=== PATIENT | male | born 1955 | race Caucasian/White ===

== ENCOUNTER 2017-03-21 18:41 | Emergency (ER) | payer MEDICAID ==
--- NOTE | 2017-03-21 22:26 | ER ---
HISTORY OF PRESENT ILLNESS: A 62-year-old male here with complaints of dizziness that started within the last hour and a half or so. He states that he felt like he was going to pass out a couple of times but he did not and the dizziness has since resolved. The patient denies any falls or injuries. Recently, he states that he decided to quit chewing tobacco so he put on NicoDerm patches today 21 mg patches, he put on 3 patches. The third patch was about 2 hours before he became dizzy. The patient denies any chest pain, shortness of breath or wheezing. He denies any nausea or vomiting. The patient tells me that he was sick a couple of days ago with flu-like symptoms but this has resolved. CURRENT MEDICATIONS: Include Lipitor, lisinopril, clobetasol cream, hydrocodone , and aspirin. ALLERGIES: OXYCODONE. OBJECTIVE: GENERAL APPEARANCE: The patient is awake and alert. He is in no obvious distress. VITAL SIGNS: Reviewed. He is afebrile. Blood pressure initially 116/66, pulse 94. HEENT: Eyes; pupils are equal, round, and reactive to light. EOMs intact without strabismus, nystagmus, or ptosis. Ears, TMs are normal. Oral mucous membranes are slightly dry. Tonsils not enlarged or injected. Pharynx not inflamed. NECK: Supple. LUNGS: Clear. CARDIAC: Heart sounds distinct, regular rate, S1-S2 present. No murmurs. ABDOMEN: Soft and nontender. SKIN: Warm and dry. The patient is able stand and walk around the emergency room without any episodes of dizziness at this time. Initial treatment; orthostatic blood pressure and pulses were obtained. When the patient stood up, his blood pressure dropped slightly to 93/63, pulse increased to 107. The patient remained asymptomatic. LABS: CBC shows a slightly elevated white count of 12.1, hemoglobin 12.1. CMP reveals a blood glucose of 131, BUN 36, creatinine 1.2. DIAGNOSES: 1. Dizziness due to over-use of NicoDerm patches. 2. Dehydration, mild. TREATMENT PLAN: The patient was able to drink water well while he was in the emergency room, and we monitored him for approximately 1 hour. He is feeling fine. I had the patient walk around the ER once again, and he is walking briskly without any discomfort or dizziness at this time. He will be discharged home. 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 I advised the patient to continue to push fluids for a couple of days. He is to skip his lisinopril tomorrow morning. He is to consult his primary care provider who is Dr. Patiño in [place], before resuming Nicoderm patches in order to do it so safely. The patient has all of the patches removed here in the emergency room, and I advised him not to restart them once again until he has some direction from his primary care provider. The patient agrees with the treatment plan and has no further questions. CRS/MODL /[id number] HANDY
== END 2017-03-21 20:40 | disposition home or self-care (01) ==
LOC: LB.ED 18:41
DX: E86.0 Dehydration (principal)
CPT/HCPCS: 36415; 80053; 85025; 99284

== ENCOUNTER 2020-07-11 12:32 | Inpatient (IN) | payer MEDICARE ==
[2020-07-11] MEDS ORDERED: Acetaminophen 500 MG Tab PO PRN (15:34)
[2020-07-11] MEDS ORDERED: Acetaminophen/HYDROcodone 325-10 MG Tab PO PRN (15:51)
[2020-07-11] MEDS ORDERED: predniSONE 10 MG Tab PO PRN (15:59)
[2020-07-11] MEDS ORDERED: Sennosides 8.6 MG Tab PO PRN (16:00)
[2020-07-11] MEDS ORDERED: Triamcinolone Acetonide 0.1% Crm 30 GM Tube TOP PRN (16:01)
[2020-07-11] MEDS ORDERED: Morphine 15 MG Tab PO PRN (16:04)
[2020-07-11] MEDS ORDERED: Tuberculin, PPD 5 Units/0.1 ML 1 ML MDV IDERM ONE (16:59)
--- NOTE | 2020-07-11 19:03 | PCM.HP.2 ---
H&P History of Present Illness - General Date of Service: 07/11/20 Admit Problem/Dx: Admission Diagnosis/Problem Admission Diagnosis/Problem Total replacement of hip Source of Information: Patient History Limitations: Reports: No Limitations - History of Present Illness Initial Comments - Free Text/Narative: This is a 65yo M here for post left total hip arthroplasty. He is currently requiring rehabilitation and doing well. No further concerns. Pain is in fair control but good control when he receives his pain meds as needed. Quality: Reports: Ache Severity: Moderate Improves with: Reports: Rest Worsens with: Reports: Movement Context: Reports: Activity/Exercise Associated Symptoms: Reports: No Other Symptoms Left Hip Pain Score (Numeric/FACES): 2 - Related Data Allergies/Adverse Reactions: Allergies Allergy/AdvReac Type Severity Reaction Status Date / Time honey Allergy Other Verified 07/11/20 14:07 [From [facility] (honey)] metformin Allergy Anaphylactic Verified 07/11/20 16:07 Shock NSAIDS (Non-Steroidal Allergy Other Verified 07/11/20 14:06 Anti-Inflamma oxycodone [Oxycodone] AdvReac Intermediate Insomnia Verified 03/21/17 18:57 Home Medications: Home Meds Aspirin [Cristóbal Chewable Aspirin] 162 mg PO DAILY 03/01/14 [History] Lisinopril 20 mg PO DAILY 03/21/17 [History] atorvaSTATin [Lipitor] 10 mg PO DAILY 03/21/17 [History] Ascorbic Acid 500 mg PO DAILY 07/11/20 [History] Cefadroxil [Duricef] 500 mg PO BID 07/11/20 [History] Cholecalciferol (Vitamin D3) [Vitamin D3] 25 mcg PO DAILY 07/11/20 [History] Doxycycline Hyclate 100 mg PO DAILY 07/11/20 [History] Enoxaparin [Lovenox] 40 mg SUBCUT DAILY 07/11/20 [History] Ferrous Sulfate 325 mg PO DAILY 07/11/20 [History] Fluocinonide [Lidex 0.05% Crm] 30 gm TOP DAILY PRN 07/11/20 [History] Morphine 15 mg PO BID PRN 07/11/20 [History] Pioglitazone [Actos] 15 mg PO DAILY 07/11/20 [History] Triamcinolone Acetonide [Kenalog 0.1% Lotion] 1 applic TOP ASDIRECTED PRN 07/11/20 [History] Vitamin B Complex [B Complex] 1 cap PO DAILY 07/11/20 [History] predniSONE [Prednisone] 10 mg PO ASDIRECTED PRN 07/11/20 [History] Acetaminophen [Tylenol Extra Strength] 1,000 mg PO Q6H PRN tablet 07/13/20 [Rx] Aspirin [Halfprin] 162 mg PO DAILY tab.ec 07/13/20 [Rx] Cefadroxil [Duricef] 500 mg PO BID #42 cap 07/13/20 [Rx] Cholecalciferol (Vitamin D3) [Vitamin D3] 25 mcg PO DAILY tablet 07/13/20 [Rx] Doxycycline [Vibramycin] 100 mg PO DAILY #21 cap 07/13/20 [Rx] Enoxaparin [Lovenox] 40 mg SUBCUT DAILY #21 syringe 07/13/20 [Rx] Ferrous Sulfate 325 mg PO DAILY tablet 07/13/20 [Rx] Morphine 15 mg PO BID PRN tablet 07/13/20 [Rx] Pioglitazone [Actos] 15 mg PO DAILY tablet 07/13/20 [Rx] Triamcinolone Acetonide [Kenalog 0.1% Crm] 0 - 1 gm TOP DAILY PRN tube 07/13/20 [Rx] atorvaSTATin [Lipitor] 10 mg PO DAILY tablet 07/13/20 [Rx] lisinopriL [Prinivil] 20 mg PO DAILY tablet 07/13/20 [Rx] predniSONE 10 mg PO DAILY PRN tablet 07/13/20 [Rx] Past Medical History HEENT History: Reports: Impaired Vision Other HEENT History: wears corrective lenses Cardiovascular History: Reports: Hypertension Gastrointestinal History: Reports: Other (See Below) Other Gastrointestinal History: Perforated Duodenum 2008, Hernia repair 2009 Musculoskeletal History: Reports: Fracture Other Musculoskeletal History: 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 Exam - Exam Exam: See Below - Vital Signs Weight: 72.802 kg - Exam General: Alert, Oriented, Cooperative HEENT: PERRLA, Conjunctiva Clear, EACs Clear, EOMI Neck: Supple Lungs: Clear to Auscultation, Normal Respiratory Effort Cardiovascular: Regular Rate, Regular Rhythm GI/Abdominal Exam: Normal Bowel Sounds, Soft, Non-Tender Back Exam: Normal Inspection Extremities: Normal Inspection - Problem List (1) H/O total hip arthroplasty SNOMED Code(s): 120515486922, 393304843453 ICD Code: Z96.649 - PRESENCE OF UNSPECIFIED ARTIFICIAL HIP JOINT Status: Acute Current Visit: Yes Qualifiers: Laterality: left Qualified Code(s): Z96.642 - Presence of left artificial hip joint Problem List Initiated/Reviewed/Updated: Yes Orders Last 24hrs: Active Orders 24 hr Category Date Time Status Patient Status [ADT] Routine ADT 07/11/20 15:04 Active Vital Signs [RC] 08,20 Care 07/11/20 15:03 Active OT Evaluation and Treatment [CONS] Routine Cons 07/11/20 15:01 Active PT Evaluation and Treatment [CONS] Routine Cons 07/11/20 14:58 Active PT Evaluation and Treatment [CONS] Routine Cons 07/11/20 14:59 Active Consistent Carbohydrate Diet [DIET] Diet 07/11/20 Dinner Ordered CORONAVIRUS COVID-19 RAPID [MOLEC] Routine Lab 07/11/20 16:56 Ordered CULTURE MRSA SURVEY [RM] Routine Lab 07/11/20 16:56 Ordered Acetaminophen [Tylenol Extra Strength] Med 07/11/20 15:34 Active 1,000 mg PO Q6H PRN Acetaminophen/HYDROcodone [[place] 325-10 MG] Med 07/11/20 15:51 Hold 1 tab PO Q4H PRN Ascorbic Acid [Vitamin C] Med 07/12/20 08:00 Active 500 mg PO DAILY Aspirin [Halfprin] Med 08/08/20 08:00 Active 162 mg PO DAILY Cholecalciferol (Vitamin D3) [Vitamin D3] Med 07/12/20 08:00 Active 25 mcg PO DAILY Doxycycline [Vibramycin] Med 07/27/20 08:00 Active 100 mg PO DAILY Enoxaparin [Lovenox] Med 07/12/20 08:00 Active 40 mg SUBCUT DAILY Ferrous Sulfate Med 07/12/20 08:00 Active 325 mg PO DAILY HYDROmorphone [Dilaudid] Med 07/11/20 15:52 Active 2 mg PO Q3H PRN Morphine Med 07/11/20 16:04 Hold 15 mg PO BID PRN Non-Formulary Medication [NF Drug] Med 07/11/20 20:00 Active 1 each PO BID Pioglitazone [Actos] Med 07/12/20 08:00 Active 15 mg PO DAILY Sennosides [Senna] Med 07/11/20 16:00 Active 8.6 mg PO DAILY PRN Triamcinolone Acetonide [Kenalog 0.1% Crm] Med 07/11/20 16:01 Active 0 - 1 gm TOP DAILY PRN atorvaSTATin [Lipitor] Med 07/12/20 08:00 Active 10 mg PO DAILY lisinopriL [Prinivil] Med 07/12/20 08:00 Active 20 mg PO DAILY predniSONE Med 07/11/20 15:59 Active 10 mg PO DAILY PRN traMADol [Ultram] Med 07/11/20 16:06 Active 50 mg PO Q6H PRN Hip Precautions Anterior [OM.PC] Routine Oth 07/11/20 15:12 Ordered Resuscitation Status Routine Resus Stat 07/11/20 15:54 Ordered Medication Orders Acetaminophen (Tylenol Extra Strength) 1,000 mg PO Q6H PRN PRN Reason: MILD PAIN (1-3) Hydrocodone Bitart/Acetaminophen ([place] 325-10 Mg) 1 tab PO Q4H PRN PRN Reason: MODERATE PAIN (4-6) Ascorbic Acid (Vitamin C) 500 mg PO DAILY [facility] Aspirin (Halfprin) 162 mg PO DAILY [facility] Atorvastatin Calcium (Lipitor) 10 mg PO DAILY [facility] Cholecalciferol (Vitamin D3) 25 mcg PO DAILY [facility] Doxycycline Hyclate (Vibramycin) 100 mg PO DAILY [facility] Enoxaparin Sodium (Lovenox) 40 mg SUBCUT DAILY [facility] Stop: 08/07/20 23:59 Ferrous Sulfate (Ferrous Sulfate) 325 mg PO DAILY [facility] Hydromorphone HCl (Dilaudid) 2 mg PO Q3H PRN PRN Reason: SEVERE PAIN (7-10) Lisinopril (Prinivil) 20 mg PO DAILY [facility] Morphine Sulfate (Morphine) 15 mg PO BID PRN PRN Reason: MODERATE PAIN (4-7) Cefadroxil 500mg (Capsule) 1 each PO BID [facility] Stop: 07/26/20 23:59 Pioglitazone HCl (Actos) 15 mg PO DAILY [facility] Prednisone (Prednisone) 10 mg PO DAILY PRN PRN Reason: RASH Senna (Senna) 8.6 mg PO DAILY PRN PRN Reason: CONSTIPATION Tramadol HCl (Ultram) 50 mg PO Q6H PRN PRN Reason: MODERATE PAIN (4-6) Triamcinolone Acetonide (Kenalog 0.1% Crm) 0 - 1 gm TOP DAILY PRN PRN Reason: RASH Assessment/Plan Comment:: Continue with rehabilitation and pain management. Patient plan for 1 week of therapy and then discharge home. - Mortality Measure Prognosis:: Good
[2020-07-11] MEDS: HYDROmorphone 2 MG Tab PO PRN (20:22)
[2020-07-12] MEDS: HYDROmorphone 2 MG Tab PO PRN ×4 (05:56→20:38)
[2020-07-12] MEDS: CEFADROXIL 500MG CAPSULE PO SCH ×2 (06:06→13:59)
[2020-07-12] MEDS: Pioglitazone 15 MG Tab PO SCH (07:44)
[2020-07-12] MEDS: traMADol 50 MG Tab PO PRN ×2 (07:44→13:58)
[2020-07-12] MEDS: Ferrous Sulfate 325 MG Tab PO SCH (07:45)
[2020-07-12] MEDS: atorvaSTATin 10 MG Tab PO SCH (07:45)
[2020-07-12] MEDS: Lisinopril 20 MG Tab PO SCH (07:45)
[2020-07-12] MEDS: Ascorbic Acid 500 MG Tab PO SCH (07:45)
[2020-07-12] MEDS: Cholecalciferol (Vitamin D3) 25 MCG Tab PO SCH (07:45)
[2020-07-12] MEDS: Enoxaparin 40 MG/0.4 ML Syringe SUBCUT SCH (07:46)
[2020-07-12] MEDS: Cefadroxil 500 MG Cap PO SCH (19:26)
[2020-07-13] MEDS: HYDROmorphone 2 MG Tab PO PRN ×5 (06:31→20:18)
[2020-07-13] MEDS: Lisinopril 20 MG Tab PO SCH (07:23)
[2020-07-13] MEDS: Ferrous Sulfate 325 MG Tab PO SCH (07:23)
[2020-07-13] MEDS: Cholecalciferol (Vitamin D3) 25 MCG Tab PO SCH (07:23)
[2020-07-13] MEDS: Pioglitazone 15 MG Tab PO SCH (07:23)
[2020-07-13] MEDS: atorvaSTATin 10 MG Tab PO SCH (07:23)
[2020-07-13] MEDS: Cefadroxil 500 MG Cap PO SCH ×2 (07:23→20:18)
[2020-07-13] MEDS: Ascorbic Acid 500 MG Tab PO SCH (07:24)
[2020-07-13] MEDS: traMADol 50 MG Tab PO PRN ×2 (07:25→15:00)
[2020-07-13] MEDS: Enoxaparin 40 MG/0.4 ML Syringe SUBCUT SCH (07:28)
[2020-07-14] MEDS: HYDROmorphone 2 MG Tab PO PRN ×4 (01:11→19:35)
[2020-07-14] MEDS: Enoxaparin 40 MG/0.4 ML Syringe SUBCUT SCH (08:01)
[2020-07-14] MEDS: atorvaSTATin 10 MG Tab PO SCH (08:02)
[2020-07-14] MEDS: Pioglitazone 15 MG Tab PO SCH (08:03)
[2020-07-14] MEDS: traMADol 50 MG Tab PO PRN (08:03)
[2020-07-14] MEDS: Ascorbic Acid 500 MG Tab PO SCH (08:03)
[2020-07-14] MEDS: Ferrous Sulfate 325 MG Tab PO SCH (08:03)
[2020-07-14] MEDS: Lisinopril 20 MG Tab PO SCH (08:03)
[2020-07-14] MEDS: Cholecalciferol (Vitamin D3) 25 MCG Tab PO SCH (08:04)
[2020-07-14] MEDS: Cefadroxil 500 MG Cap PO SCH ×2 (08:04→19:32)
[2020-07-15] MEDS: traMADol 50 MG Tab PO PRN (03:00)
[2020-07-15] MEDS: Ascorbic Acid 500 MG Tab PO SCH (07:47)
[2020-07-15] MEDS: Pioglitazone 15 MG Tab PO SCH (07:47)
[2020-07-15] MEDS: Cholecalciferol (Vitamin D3) 25 MCG Tab PO SCH (07:48)
[2020-07-15] MEDS: Lisinopril 20 MG Tab PO SCH (07:48)
[2020-07-15] MEDS: atorvaSTATin 10 MG Tab PO SCH (07:48)
[2020-07-15] MEDS: Cefadroxil 500 MG Cap PO SCH (07:48)
[2020-07-15] MEDS: Ferrous Sulfate 325 MG Tab PO SCH (07:48)
[2020-07-15] MEDS: Enoxaparin 40 MG/0.4 ML Syringe SUBCUT SCH (07:50)
[2020-07-27] MEDS ORDERED: Doxycycline 100 MG Cap PO SCH (08:00)
[2020-08-08] MEDS ORDERED: Aspirin 81 MG Tab.EC PO SCH (08:00)
--- NOTE | 2020-08-08 17:30 | PCM.DCSUM1 ---
Discharge Summary - Discharge Data Discharge Date: 07/15/20 Discharge Disposition: Home, Self-Care 01 Condition: Good - Referral to Home Health Primary Care Physician: PCP None - Discharge Diagnosis/Problem(s) (1) H/O total hip arthroplasty SNOMED Code(s): 439119599778, [id number] ICD Code: Z96.649 - PRESENCE OF UNSPECIFIED ARTIFICIAL HIP JOINT Status: Acute Qualifiers: Laterality: left Qualified Code(s): Z96.642 - Presence of left artificial hip joint - Patient Summary/Data Consults: Consultations 07/11/20 14:58 PT Evaluation and Treatment [CONS] Routine Please Evaluate and Treat. PT Reason for Consult: Post op Ortho Surgery This query below is only for informational purposes and is not editable. 07/11/20 14:59 PT Evaluation and Treatment [CONS] Routine Please Evaluate and Treat. PT Reason for Consult: Wound Care This query below is only for informational purposes and is not editable. 07/11/20 15:01 OT Evaluation and Treatment [CONS] Routine Please Evaluate and Treat. OT Reason for Consult: ADL's This query below is only for informational purposes and is not editable. - Patient Instructions Diet: Usual Diet as Tolerated Activity: As Tolerated Driving: Do Not Drive Wound/Incision Care: Keep Operative Site/Wound Site Clean and Dry Notify Provider of: Increased Pain, Swelling and Redness, Drainage, Nausea and/or Vomiting - Discharge Plan Prescriptions/Med Rec: Cefadroxil [Duricef] 500 mg PO BID #42 cap Enoxaparin [Lovenox] 40 mg SUBCUT DAILY #21 syringe Doxycycline [Vibramycin] 100 mg PO DAILY #21 cap Home Medications: Home Meds Aspirin [Cristóbal Chewable Aspirin] 162 mg PO DAILY 03/01/14 [History] Lisinopril 20 mg PO DAILY 03/21/17 [History] atorvaSTATin [Lipitor] 10 mg PO DAILY 03/21/17 [History] Ascorbic Acid 500 mg PO DAILY 07/11/20 [History] Cefadroxil [Duricef] 500 mg PO BID 07/11/20 [History] Cholecalciferol (Vitamin D3) [Vitamin D3] 25 mcg PO DAILY 07/11/20 [History] Doxycycline Hyclate 100 mg PO DAILY 07/11/20 [History] Enoxaparin [Lovenox] 40 mg SUBCUT DAILY 07/11/20 [History] Ferrous Sulfate 325 mg PO DAILY 07/11/20 [History] Fluocinonide [Lidex 0.05% Crm] 30 gm TOP DAILY PRN 07/11/20 [History] Morphine 15 mg PO BID PRN 07/11/20 [History] Pioglitazone [Actos] 15 mg PO DAILY 07/11/20 [History] Triamcinolone Acetonide [Kenalog 0.1% Lotion] 1 applic TOP ASDIRECTED PRN 07/11/20 [History] Vitamin B Complex [B Complex] 1 cap PO DAILY 07/11/20 [History] predniSONE [Prednisone] 10 mg PO ASDIRECTED PRN 07/11/20 [History] Acetaminophen [Tylenol Extra Strength] 1,000 mg PO Q6H PRN tablet 07/13/20 [Rx] Aspirin [Halfprin] 162 mg PO DAILY tab.ec 07/13/20 [Rx] Cefadroxil [Duricef] 500 mg PO BID #42 cap 07/13/20 [Rx] Cholecalciferol (Vitamin D3) [Vitamin D3] 25 mcg PO DAILY tablet 07/13/20 [Rx] Doxycycline [Vibramycin] 100 mg PO DAILY #21 cap 07/13/20 [Rx] Enoxaparin [Lovenox] 40 mg SUBCUT DAILY #21 syringe 07/13/20 [Rx] Ferrous Sulfate 325 mg PO DAILY tablet 07/13/20 [Rx] Morphine 15 mg PO BID PRN tablet 07/13/20 [Rx] Pioglitazone [Actos] 15 mg PO DAILY tablet 07/13/20 [Rx] Triamcinolone Acetonide [Kenalog 0.1% Crm] 0 - 1 gm TOP DAILY PRN tube 07/13/20 [Rx] atorvaSTATin [Lipitor] 10 mg PO DAILY tablet 07/13/20 [Rx] lisinopriL [Prinivil] 20 mg PO DAILY tablet 07/13/20 [Rx] predniSONE 10 mg PO DAILY PRN tablet 07/13/20 [Rx] Patient Handouts: Enoxaparin injection, Doxycycline tablets or capsules, Cefadroxil Tablets or Capsules - Discharge Summary/Plan Comment DC Time >30 min.: No Discharge Summary/Plan Comment: Patient doing well and discharged into care of family. Discussed care and ongoing follow up in clinic and pain management as needed. Rtc as needed. - Patient Data Vitals - Most Recent: Last Vital Signs Temp 36.3 C 07/15/20 07:32 Pulse 96 07/15/20 07:32 Resp 16 07/15/20 07:32 BP 139/91 H 07/15/20 07:48 Pulse Ox 100 07/15/20 07:32 Weight - Most Recent: 72.802 kg Med Orders - Current: Current Medications Discontinued Medications Acetaminophen (Tylenol Extra Strength) 1,000 mg PO Q6H PRN PRN Reason: MILD PAIN (1-3) Hydrocodone Bitart/Acetaminophen ([place] 325-10 Mg) 1 tab PO Q4H PRN PRN Reason: MODERATE PAIN (4-6) Ascorbic Acid (Vitamin C) 500 mg PO DAILY [facility] Last Admin: 07/15/20 07:47 Dose: 500 mg Documented by: Aspirin (Halfprin) 162 mg PO DAILY [facility] Atorvastatin Calcium (Lipitor) 10 mg PO DAILY [facility] Last Admin: 07/15/20 07:48 Dose: 10 mg Documented by: Cefadroxil (Duricef) 500 mg PO BID [facility] Stop: 07/26/20 23:59 Last Admin: 07/15/20 07:48 Dose: 500 mg Documented by: Cholecalciferol (Vitamin D3) 25 mcg PO DAILY [facility] Last Admin: 07/15/20 07:48 Dose: 25 mcg Documented by: Doxycycline Hyclate (Vibramycin) 100 mg PO DAILY [facility] Enoxaparin Sodium (Lovenox) 40 mg SUBCUT DAILY [facility] Stop: 08/07/20 23:59 Last Admin: 07/15/20 07:50 Dose: 40 mg Documented by: Ferrous Sulfate (Ferrous Sulfate) 325 mg PO DAILY [facility] Last Admin: 07/15/20 07:48 Dose: 325 mg Documented by: Hydromorphone HCl (Dilaudid) 2 mg PO Q3H PRN PRN Reason: SEVERE PAIN (7-10) Last Admin: 07/14/20 19:35 Dose: 2 mg Documented by: Lisinopril (Prinivil) 20 mg PO DAILY [facility] Last Admin: 07/15/20 07:48 Dose: 20 mg Documented by: Morphine Sulfate (Morphine) 15 mg PO BID PRN PRN Reason: MODERATE PAIN (4-7) Cefadroxil 500mg (Capsule) 1 each PO BID [facility] Stop: 07/26/20 23:59 Last Admin: 07/12/20 13:59 Dose: Not Given Documented by: Pioglitazone HCl (Actos) 15 mg PO DAILY [facility] Last Admin: 07/15/20 07:47 Dose: 15 mg Documented by: Prednisone (Prednisone) 10 mg PO DAILY PRN PRN Reason: RASH Senna (Senna) 8.6 mg PO DAILY PRN PRN Reason: CONSTIPATION Tramadol HCl (Ultram) 50 mg PO Q6H PRN PRN Reason: MODERATE PAIN (4-6) Last Admin: 07/15/20 03:00 Dose: 50 mg Documented by: Triamcinolone Acetonide (Kenalog 0.1% Crm) 0 - 1 gm TOP DAILY PRN PRN Reason: RASH Tuberculin PPD (Aplisol) 5 unit IDERM ONETIME ONE Stop: 07/11/20 17:00 Last Admin: 07/12/20 06:00 Dose: 5 unit Documented by:
== END 2020-07-15 12:00 | disposition home or self-care (01) | DRG 561 ==
LOC: LB.MS 15:04
PROVIDERS: ADMIT Family Medicine; ATTEND Family Medicine
DX: Z47.1 Aftercare following joint replacement surgery (principal); Z96.642 Presence of left artificial hip joint; H54.7 Unspecified visual loss; I10 Essential (primary) hypertension; Z91.018 Allergy to other foods; Z20.822 Contact with and (suspected) exposure to COVID-19; Z79.82 Long term (current) use of aspirin; Z79.899 Other long term (current) drug therapy; Z79.52 Long term (current) use of systemic steroids; Z88.5 Allergy status to narcotic agent
CPT/HCPCS: 82962; 86580; 97110-GP; 97161-GP; 97165-GO; 97530-GP; 99304; A9270-GY; J1650; U0002

== ENCOUNTER 2020-10-10 11:08 | Inpatient (IN) | payer MEDICARE ==
[2020-10-10] MEDS ORDERED: Acetaminophen 500 MG Tab PO PRN (13:37)
[2020-10-10] MEDS ORDERED: predniSONE 10 MG Tab PO PRN (14:13)
[2020-10-10] MEDS ORDERED: Triamcinolone Acetonide 0.1% Crm 30 GM Tube TOP PRN (14:16)
[2020-10-10] MEDS ORDERED: Tuberculin, PPD 5 Units/0.1 ML 1 ML MDV IDERM ONE (18:11)
[2020-10-10] MEDS: HYDROmorphone 2 MG Tab PO PRN (21:13)
[2020-10-10] MEDS: Cefadroxil 500 MG Cap PO SCH (21:16)
[2020-10-11] MEDS: HYDROmorphone 2 MG Tab PO PRN ×6 (07:39→21:40)
[2020-10-11] MEDS: Pioglitazone 15 MG Tab PO SCH (07:40)
[2020-10-11] MEDS: Ascorbic Acid 500 MG Tab PO SCH (07:40)
[2020-10-11] MEDS: Lisinopril 20 MG Tab PO SCH (07:40)
[2020-10-11] MEDS: Cefadroxil 500 MG Cap PO SCH ×2 (07:41→20:35)
[2020-10-11] MEDS: Cholecalciferol (Vitamin D3) 25 MCG Tab PO SCH (07:41)
[2020-10-11] MEDS: Thiamine 100 MG Tab PO SCH (07:41)
[2020-10-11] MEDS: atorvaSTATin 10 MG Tab PO SCH (07:41)
[2020-10-11] MEDS: Ferrous Sulfate 325 MG Tab PO SCH (07:42)
[2020-10-11] MEDS: Enoxaparin 40 MG/0.4 ML Syringe SUBCUT SCH (07:42)
[2020-10-11] MEDS: Vitamin B6-pyridOXINE 50 MG Tab PO SCH (07:43)
[2020-10-11] MEDS ORDERED: Triamcinolone Acetonide 0.1% Crm 15 GM Tube TOP PRN (08:00)
[2020-10-11] MEDS ORDERED: Aspirin 81 MG Tab.EC PO SCH (08:00)
--- NOTE | 2020-10-11 08:47 | PCM.HP.2 ---
H&P History of Present Illness - General Date of Service: 10/10/20 Admit Problem/Dx: Admission Diagnosis/Problem Admission Diagnosis/Problem Pain of right lower extremity Source of Information: Patient History Limitations: Reports: No Limitations - History of Present Illness Initial Comments - Free Text/Narative: This is a 65yo M here for right knee arthroplasty rehabilitation and management. He has been improving daily and doing well without any concerns. There is minimal tenderness with use. He has worked well with PT. Location: Reports: Lower Extremity, Right Quality: Reports: Ache Severity: Mild Improves with: Reports: Rest Worsens with: Reports: Movement Right Knee Pain Score (Numeric/FACES): 7 - Related Data Allergies/Adverse Reactions: Allergies Allergy/AdvReac Type Severity Reaction Status Date / Time honey Allergy Other Verified 10/10/20 21:41 [From [facility] (honey)] metformin Allergy Anaphylactic Verified 10/10/20 21:41 Shock NSAIDS (Non-Steroidal Allergy Other Verified 10/10/20 21:41 Anti-Inflamma oxycodone [Oxycodone] AdvReac Intermediate Insomnia Verified 10/10/20 21:41 Home Medications: Home Meds Ascorbic Acid 500 mg PO DAILY 07/11/20 [History] Fluocinonide [Lidex 0.05% Crm] 30 gm TOP DAILY PRN 07/11/20 [History] Triamcinolone Acetonide [Kenalog 0.1% Lotion] 1 applic TOP ASDIRECTED PRN 07/11/20 [History] Vitamin B Complex [B Complex] 1 cap PO DAILY 07/11/20 [History] Acetaminophen [Tylenol Extra Strength] 1,000 mg PO Q6H PRN tablet 07/13/20 [Rx] Aspirin [Halfprin] 162 mg PO DAILY tab.ec 07/13/20 [Rx] Cefadroxil [Duricef] 500 mg PO BID #42 cap 07/13/20 [Rx] Cholecalciferol (Vitamin D3) [Vitamin D3] 25 mcg PO DAILY tablet 07/13/20 [Rx] Enoxaparin [Lovenox] 40 mg SUBCUT DAILY #21 syringe 07/13/20 [Rx] Ferrous Sulfate 325 mg PO DAILY tablet 07/13/20 [Rx] Pioglitazone [Actos] 15 mg PO DAILY tablet 07/13/20 [Rx] atorvaSTATin [Lipitor] 10 mg PO DAILY tablet 07/13/20 [Rx] lisinopriL [Prinivil] 20 mg PO DAILY tablet 07/13/20 [Rx] predniSONE 10 mg PO DAILY PRN tablet 07/13/20 [Rx] Docusate Sodium/Sennosides [Senna Plus] 1 tab PO BID 10/10/20 [History] HYDROmorphone [Dilaudid] 1 - 3 tab PO Q3H PRN 10/10/20 [History] Past Medical History HEENT History: Reports: Impaired Vision Other HEENT History: wears corrective lenses Cardiovascular History: Reports: Blood Clots/VTE/DVT, High Cholesterol, Hypertension, PVD Respiratory History: Reports: COPD, PE Gastrointestinal History: Reports: GERD, Hiatal Hernia, Other (See Below) Other Gastrointestinal History: Perforated Duodenum 2008, Hernia repair 2009 Musculoskeletal History: Reports: Arthritis, Fracture Other Musculoskeletal History: R elbow fx with ORIF and osteomylitis and MRSA in 2004, Neurological History: Reports: Neuropathy, Peripheral Psychiatric History: Reports: Depression Endocrine/Metabolic History: Reports: Diabetes, Type II Hematologic History: Reports: Anemia, Blood Transfusion(s), Iron Deficiency Dermatologic History: Reports: Eczema, Psoriasis Other Dermatologic History: Left leg ulcer r/t vascular insufficiency - Infectious Disease History Infectious Disease History: Reports: Chicken Pox, MRSA - Past Surgical History HEENT Surgical History: Reports: None GI Surgical History: Reports: Hernia Repair/Other Musculoskeletal Surgical History: Reports: Joint Replacement, Knee Replacement Other Musculoskeletal Surgeries/Procedures:: left hip Social & Family History - Family History Family Medical History: No Pertinent Family History - Tobacco Use Tobacco Use Status *Q: Former Tobacco User Years of Tobacco use: 45 Used Tobacco, but Quit: Yes Month/Year Tobacco Last Used: 11/2005 Second Hand Smoke Exposure: No - Caffeine Use Caffeine Use: Reports: Coffee - Recreational Drug Use Recreational Drug Use: No H&P Review of Systems - Review of Systems: Review Of Systems: See Below General: Reports: No Symptoms HEENT: Reports: No Symptoms Pulmonary: Reports: No Symptoms Cardiovascular: Reports: No Symptoms Gastrointestinal: Reports: No Symptoms Genitourinary: Reports: No Symptoms Musculoskeletal: Reports: Joint Pain Skin: Reports: No Symptoms Psychiatric: Reports: No Symptoms Neurological: Reports: No Symptoms Exam - Exam Exam: See Below - Vital Signs Vital Signs: Last Vital Signs Temp 37.4 C 10/11/20 07:30 Pulse 83 10/11/20 07:30 Resp 18 10/11/20 07:30 BP 131/69 10/11/20 07:40 Pulse Ox 97 10/11/20 07:30 Weight: 85.049 kg - Exam General: Alert, Oriented, Cooperative HEENT: PERRLA Neck: Supple, Trachea Midline Lungs: Clear to Auscultation, Normal Respiratory Effort Cardiovascular: Regular Rate, Regular Rhythm GI/Abdominal Exam: Normal Bowel Sounds Back Exam: Normal Inspection Extremities: Leg Pain Sepsis Event Note - Evaluation Sepsis Screening Result: No Definite Risk - Focused Exam Vital Signs: Vital Signs Temp Pulse Resp BP BP Pulse Ox 10/11/20 07:40 131/69 10/11/20 07:30 37.4 C 83 18 131/69 97 10/10/20 21:00 37.2 C 92 16 118/65 99 - Problem List (1) History of total right knee replacement SNOMED Code(s): 1032690419149, [id number], 1422696667042, 12318464460232 ICD Code: Z96.651 - PRESENCE OF RIGHT ARTIFICIAL KNEE JOINT Status: Acute Problem List Initiated/Reviewed/Updated: Yes Orders Last 24hrs: Active Orders 24 hr Category Date Time Status Admission Status [Patient Status] [ADT] Routine ADT 10/10/20 16:13 Active OT Evaluation and Treatment [CONS] Routine Cons 10/10/20 16:21 Active PT Evaluation and Treatment [CONS] Routine Cons 10/10/20 16:21 Active Consistent Carbohydrate Diet [DIET] Diet 10/10/20 Dinner Ordered CULTURE MRSA SURVEY [RM] Routine Lab 10/10/20 20:16 Received Acetaminophen [Tylenol Extra Strength] Med 10/10/20 13:37 Active 1,000 mg PO Q6H PRN Ascorbic Acid [Vitamin C] Med 10/11/20 08:00 Active 500 mg PO DAILY Aspirin [Halfprin] Med 11/06/20 08:00 Active 162 mg PO DAILY Cefadroxil [Duricef] Med 10/10/20 20:00 Active 500 mg PO BID Cholecalciferol (Vitamin D3) [Vitamin D3] Med 10/11/20 08:00 Active 25 mcg PO DAILY Docusate Sodium/Sennosides [Senna Plus] Med 10/10/20 20:00 Active 1 tab PO BID Enoxaparin [Lovenox] Med 10/11/20 08:00 Active 40 mg SUBCUT DAILY Ferrous Sulfate Med 10/11/20 08:00 Active 325 mg PO DAILY HYDROmorphone [Dilaudid] Med 10/10/20 14:32 Active 2 - 6 mg PO Q3H PRN Pioglitazone [Actos] Med 10/11/20 08:00 Active 15 mg PO DAILY Thiamine [Vitamin B-1] Med 10/11/20 08:00 Active 50 mg PO DAILY Triamcinolone Acetonide [Kenalog 0.1% Crm] Med 10/10/20 14:16 Active 0 - 1 gm TOP DAILY PRN Vitamin B6-pyridOXINE Med 10/11/20 08:00 Active 50 mg PO DAILY atorvaSTATin [Lipitor] Med 10/11/20 08:00 Active 10 mg PO DAILY lisinopriL [Prinivil] Med 10/11/20 08:00 Active 20 mg PO DAILY predniSONE Med 10/10/20 14:13 Active 10 mg PO DAILY PRN Weight bearing status [OM.PC] Routine Oth 10/10/20 16:22 Ordered Resuscitation Status Routine Resus Stat 10/10/20 20:11 Ordered Medication Orders Acetaminophen (Acetaminophen 500 Mg Tab) 1,000 mg PO Q6H PRN PRN Reason: MILD PAIN (1-3) Ascorbic Acid (Ascorbic Acid 500 Mg Tab) 500 mg PO DAILY [facility] Last Admin: 10/11/20 07:40 Dose: 500 mg Documented by: HERO Aspirin (Aspirin 81 Mg Tab.Ec) 162 mg PO DAILY [facility] Atorvastatin Calcium (Atorvastatin 10 Mg Tab) 10 mg PO DAILY [facility] Last Admin: 10/11/20 07:41 Dose: 10 mg Documented by: HERO Cefadroxil (Cefadroxil 500 Mg Cap) 500 mg PO BID [facility] Stop: 10/20/20 23:59 Last Admin: 10/11/20 07:41 Dose: 500 mg Documented by: Admin: 10/10/20 21:16 Dose: 500 mg Documented by: ROYAL Cholecalciferol (Cholecalciferol (Vitamin D3) 25 Mcg Tab) 25 mcg PO DAILY [facility] Last Admin: 10/11/20 07:41 Dose: 25 mcg Documented by: HERO Enoxaparin Sodium (Enoxaparin 40 Mg/0.4 Ml Syringe) 40 mg SUBCUT DAILY [facility] Stop: 11/05/20 23:59 Last Admin: 10/11/20 07:42 Dose: 40 mg Documented by: HERO Ferrous Sulfate (Ferrous Sulfate 325 Mg Tab) 325 mg PO DAILY [facility] Last Admin: 10/11/20 07:42 Dose: 325 mg Documented by: HERO Hydromorphone HCl (Hydromorphone 2 Mg Tab) 2 - 6 mg PO Q3H PRN PRN Reason: PAIN Last Admin: 10/11/20 07:39 Dose: 4 mg Documented by: Admin: 10/10/20 21:13 Dose: 4 mg Documented by: ROYAL Lisinopril (Lisinopril 20 Mg Tab) 20 mg PO DAILY [facility] Last Admin: 10/11/20 07:40 Dose: 20 mg Documented by: HERO Pioglitazone HCl (Pioglitazone 15 Mg Tab) 15 mg PO DAILY [facility] Last Admin: 10/11/20 07:40 Dose: 15 mg Documented by: HERO Prednisone (Prednisone 10 Mg Tab) 10 mg PO DAILY PRN PRN Reason: RASH Pyridoxine HCl (Vitamin B6-Pyridoxine 50 Mg Tab) 50 mg PO DAILY [facility] Last Admin: 10/11/20 07:43 Dose: 50 mg Documented by: HERO Senna/Docusate Sodium (Docusate Sodium/Sennosides 50-8.6 Mg Tab) 1 tab PO BID [facility] Last Admin: 10/11/20 07:41 Dose: 1 tab Documented by: Admin: 10/10/20 21:16 Dose: 1 tab Documented by: ROYAL Thiamine HCl (Thiamine 100 Mg Tab) 50 mg PO DAILY [facility] Last Admin: 10/11/20 07:41 Dose: 50 mg Documented by: HERO Triamcinolone Acetonide (Triamcinolone Acetonide 0.1% Crm 30 Gm Tube) 0 - 1 gm TOP DAILY PRN PRN Reason: RASH Assessment/Plan Comment:: Patient to continue rehabilitation and management. Pain management to continue. - Mortality Measure Prognosis:: Good
[2020-10-11 11:07] LABS: CORONAVIRUS COVID-19 NAA NEGATIVE (NEGATIVE)
[2020-10-12] MEDS: HYDROmorphone 2 MG Tab PO PRN ×8 (01:04→23:15)
[2020-10-12] MEDS: Ferrous Sulfate 325 MG Tab PO SCH (07:47)
[2020-10-12] MEDS: atorvaSTATin 10 MG Tab PO SCH (07:47)
[2020-10-12] MEDS: Thiamine 100 MG Tab PO SCH (07:47)
[2020-10-12] MEDS: Lisinopril 20 MG Tab PO SCH (07:47)
[2020-10-12] MEDS: Cholecalciferol (Vitamin D3) 25 MCG Tab PO SCH (07:47)
[2020-10-12] MEDS: Pioglitazone 15 MG Tab PO SCH (07:47)
[2020-10-12] MEDS: Enoxaparin 40 MG/0.4 ML Syringe SUBCUT SCH (07:48)
[2020-10-12] MEDS: Vitamin B6-pyridOXINE 50 MG Tab PO SCH (07:48)
[2020-10-12] MEDS: Ascorbic Acid 500 MG Tab PO SCH (07:48)
[2020-10-12] MEDS: Cefadroxil 500 MG Cap PO SCH ×2 (07:48→20:00)
[2020-10-13] MEDS: HYDROmorphone 2 MG Tab PO PRN ×7 (03:27→23:15)
[2020-10-13] MEDS: Enoxaparin 40 MG/0.4 ML Syringe SUBCUT SCH (07:34)
[2020-10-13] MEDS: Ferrous Sulfate 325 MG Tab PO SCH (07:35)
[2020-10-13] MEDS: Thiamine 100 MG Tab PO SCH (07:35)
[2020-10-13] MEDS: Cholecalciferol (Vitamin D3) 25 MCG Tab PO SCH (07:35)
[2020-10-13] MEDS: Ascorbic Acid 500 MG Tab PO SCH (07:36)
[2020-10-13] MEDS: Cefadroxil 500 MG Cap PO SCH ×2 (07:36→19:39)
[2020-10-13] MEDS: Pioglitazone 15 MG Tab PO SCH (07:36)
[2020-10-13] MEDS: Vitamin B6-pyridOXINE 50 MG Tab PO SCH (07:36)
[2020-10-13] MEDS: atorvaSTATin 10 MG Tab PO SCH (07:36)
[2020-10-13] MEDS: Lisinopril 20 MG Tab PO SCH (07:37)
[2020-10-14] MEDS: HYDROmorphone 2 MG Tab PO PRN (07:05)
[2020-10-14 07:29] VITALS: BP 132/79; PULSE 88
[2020-10-14] MEDS: Ferrous Sulfate 325 MG Tab PO SCH (07:42)
[2020-10-14] MEDS: Lisinopril 20 MG Tab PO SCH (07:42)
[2020-10-14] MEDS: Thiamine 100 MG Tab PO SCH (07:43)
[2020-10-14] MEDS: Cholecalciferol (Vitamin D3) 25 MCG Tab PO SCH (07:43)
[2020-10-14] MEDS: Vitamin B6-pyridOXINE 50 MG Tab PO SCH (07:43)
[2020-10-14] MEDS: atorvaSTATin 10 MG Tab PO SCH (07:43)
[2020-10-14] MEDS: Cefadroxil 500 MG Cap PO SCH (07:43)
[2020-10-14] MEDS: Pioglitazone 15 MG Tab PO SCH (07:43)
[2020-10-14] MEDS: Ascorbic Acid 500 MG Tab PO SCH (07:44)
[2020-10-14] MEDS: Enoxaparin 40 MG/0.4 ML Syringe SUBCUT SCH (08:07)
--- NOTE | 2020-10-14 10:43 | PCM.DCSUM1 ---
Discharge Summary - Discharge Data Discharge Date: 10/14/20 Discharge Disposition: Home, Self-Care 01 Condition: Stable - Referral to Home Health Primary Care Physician: PCP None - Discharge Diagnosis/Problem(s) (1) History of total right knee replacement SNOMED Code(s): 0702962213704, [id number], [id number], [id number] ICD Code: Z96.651 - PRESENCE OF RIGHT ARTIFICIAL KNEE JOINT Status: Acute - Patient Summary/Data Consults: Consultations 10/10/20 16:21 OT Evaluation and Treatment [CONS] Routine Please Evaluate and Treat. OT Reason for Consult: Other (Type Response) Special Instructions: Post-op ortho surgery This query below is only for informational purposes and is not editable. Admission Diagnosis/Problem: Pain of right lower extremity PT Evaluation and Treatment [CONS] Routine Please Evaluate and Treat. PT Reason for Consult: Post op Ortho Surgery This query below is only for informational purposes and is not editable. Admission Diagnosis/Problem: Pain of right lower extremity - Patient Instructions Diet: Usual Diet as Tolerated Activity: As Tolerated Showering/Bathing: May Shower Notify Provider of: Fever, Increased Pain, Swelling and Redness, Drainage, Nausea and/or Vomiting - Discharge Plan Home Medications: Home Meds Ascorbic Acid 500 mg PO DAILY 07/11/20 [History] Fluocinonide [Lidex 0.05% Crm] 30 gm TOP DAILY PRN 07/11/20 [History] Triamcinolone Acetonide [Kenalog 0.1% Lotion] 1 applic TOP ASDIRECTED PRN 07/11/20 [History] Vitamin B Complex [B Complex] 1 cap PO DAILY 07/11/20 [History] Acetaminophen [Tylenol Extra Strength] 1,000 mg PO Q6H PRN tablet 07/13/20 [Rx] Aspirin [Halfprin] 162 mg PO DAILY tab.ec 07/13/20 [Rx] Cefadroxil [Duricef] 500 mg PO BID #42 cap 07/13/20 [Rx] Cholecalciferol (Vitamin D3) [Vitamin D3] 25 mcg PO DAILY tablet 07/13/20 [Rx] Enoxaparin [Lovenox] 40 mg SUBCUT DAILY #21 syringe 07/13/20 [Rx] Ferrous Sulfate 325 mg PO DAILY tablet 07/13/20 [Rx] Pioglitazone [Actos] 15 mg PO DAILY tablet 07/13/20 [Rx] atorvaSTATin [Lipitor] 10 mg PO DAILY tablet 07/13/20 [Rx] lisinopriL [Prinivil] 20 mg PO DAILY tablet 07/13/20 [Rx] predniSONE 10 mg PO DAILY PRN tablet 07/13/20 [Rx] Docusate Sodium/Sennosides [Senna Plus] 1 tab PO BID 10/10/20 [History] HYDROmorphone [Dilaudid] 1 - 3 tab PO Q3H PRN 10/10/20 [History] - Discharge Summary/Plan Comment DC Time >30 min.: No Discharge Summary/Plan Comment: Patient to continue PT for rehabilitation outpatient at [facility]. F/u with PCP as directed for further management and if any worsening of pain or right knee concerns. - Patient Data Vitals - Most Recent: Last Vital Signs Temp 36.9 C 10/14/20 07:09 Pulse 88 10/14/20 07:09 Resp 16 10/14/20 07:09 BP 132/79 10/14/20 07:42 Pulse Ox 94 L 10/14/20 07:09 Weight - Most Recent: 85.049 kg Lab Results - Last 24 hrs: Laboratory Results - last 24 hr 10/14/20 Range/Units 07:59 POC Glucose 128 H (74-110) mg/dL Med Orders - Current: Current Medications Discontinued Medications Acetaminophen (Acetaminophen 500 Mg Tab) 1,000 mg PO Q6H PRN PRN Reason: MILD PAIN (1-3) Ascorbic Acid (Ascorbic Acid 500 Mg Tab) 500 mg PO DAILY [facility] Last Admin: 10/14/20 07:44 Dose: 500 mg Documented by: Aspirin (Aspirin 81 Mg Tab.Ec) 162 mg PO DAILY [facility] Atorvastatin Calcium (Atorvastatin 10 Mg Tab) 10 mg PO DAILY [facility] Last Admin: 10/14/20 07:43 Dose: 10 mg Documented by: Cefadroxil (Cefadroxil 500 Mg Cap) 500 mg PO BID [facility] Stop: 10/20/20 23:59 Last Admin: 10/14/20 07:43 Dose: 500 mg Documented by: Cholecalciferol (Cholecalciferol (Vitamin D3) 25 Mcg Tab) 25 mcg PO DAILY [facility] Last Admin: 10/14/20 07:43 Dose: 25 mcg Documented by: Enoxaparin Sodium (Enoxaparin 40 Mg/0.4 Ml Syringe) 40 mg SUBCUT DAILY [facility] Stop: 11/05/20 23:59 Last Admin: 10/14/20 08:07 Dose: 40 mg Documented by: Ferrous Sulfate (Ferrous Sulfate 325 Mg Tab) 325 mg PO DAILY [facility] Last Admin: 10/14/20 07:42 Dose: 325 mg Documented by: Hydromorphone HCl (Hydromorphone 2 Mg Tab) 2 - 6 mg PO Q3H PRN PRN Reason: PAIN Last Admin: 10/14/20 07:05 Dose: 4 mg Documented by: Lisinopril (Lisinopril 20 Mg Tab) 20 mg PO DAILY [facility] Last Admin: 10/14/20 07:42 Dose: 20 mg Documented by: Pioglitazone HCl (Pioglitazone 15 Mg Tab) 15 mg PO DAILY [facility] Last Admin: 10/14/20 07:43 Dose: 15 mg Documented by: Prednisone (Prednisone 10 Mg Tab) 10 mg PO DAILY PRN PRN Reason: RASH Pyridoxine HCl (Vitamin B6-Pyridoxine 50 Mg Tab) 50 mg PO DAILY [facility] Last Admin: 10/14/20 07:43 Dose: 50 mg Documented by: Senna/Docusate Sodium (Docusate Sodium/Sennosides 50-8.6 Mg Tab) 1 tab PO BID [facility] Last Admin: 10/14/20 07:43 Dose: 1 tab Documented by: Thiamine HCl (Thiamine 100 Mg Tab) 50 mg PO DAILY [facility] Last Admin: 10/14/20 07:43 Dose: 50 mg Documented by: Triamcinolone Acetonide (Triamcinolone Acetonide 0.1% Crm 30 Gm Tube) 0 - 1 gm TOP DAILY PRN PRN Reason: RASH Last Admin: 10/11/20 13:30 Dose: 1 applic Documented by: Triamcinolone Acetonide (Triamcinolone Acetonide 0.1% Crm 15 Gm Tube) 30 gm TOP BID PRN PRN Reason: Itching Tuberculin PPD (Tuberculin, Ppd 5 Units/0.1 Ml 1 Ml Mdv) 5 unit IDERM ONETIME ONE Stop: 10/10/20 18:12 Last Admin: 10/10/20 21:20 Dose: 5 unit Documented by:
[2020-11-06] MEDS ORDERED: Aspirin 81 MG Tab.EC PO SCH (08:00)
== END 2020-10-14 09:50 | disposition home or self-care (01) | DRG 561 ==
LOC: LB.MS 20:38
PROVIDERS: ADMIT Family Medicine; ATTEND Family Medicine
DX: Z47.1 Aftercare following joint replacement surgery (principal); H54.7 Unspecified visual loss; E78.00 Pure hypercholesterolemia, unspecified; I10 Essential (primary) hypertension; E11.51 Type 2 diabetes mellitus with diabetic peripheral angiopathy without gangrene; J44.9 Chronic obstructive pulmonary disease, unspecified; K21.9 Gastro-esophageal reflux disease without esophagitis; Z20.822 Contact with and (suspected) exposure to COVID-19; M79.661 Pain in right lower leg; K44.9 Diaphragmatic hernia without obstruction or gangrene; M19.90 Unspecified osteoarthritis, unspecified site; E11.42 Type 2 diabetes mellitus with diabetic polyneuropathy; F32.9 Major depressive disorder, single episode, unspecified; D50.9 Iron deficiency anemia, unspecified; I99.8 Other disorder of circulatory system; Z96.642 Presence of left artificial hip joint; Z96.651 Presence of right artificial knee joint; Z91.018 Allergy to other foods; Z88.8 Allergy status to other drugs, medicaments and biological substances; Z88.6 Allergy status to analgesic agent; Z88.5 Allergy status to narcotic agent; Z86.718 Personal history of other venous thrombosis and embolism; Z86.711 Personal history of pulmonary embolism; Z79.01 Long term (current) use of anticoagulants; Z86.14 Personal history of Methicillin resistant Staphylococcus aureus infection; Z79.82 Long term (current) use of aspirin; Z79.899 Other long term (current) drug therapy; Z79.52 Long term (current) use of systemic steroids; Z98.890 Other specified postprocedural states; Z87.891 Personal history of nicotine dependence
CPT/HCPCS: 82947; 86580; 97110-GP; 97116-GP; 97161-GP; 97165-GO; 97530-GP; 97535-GO; A9270-GY; J1650; U0002